=== PATIENT | female | born 1945 | race Caucasian/White ===

== ENCOUNTER → 2016-06-19 | Outpatient (CLI) | payer MEDICARE ==
[2016-06-19 08:35] LABS: ALT 32 U/L (9-52); AST 32 U/L (14-36); Cholesterol 136 mg/dL (<200); HDL Cholesterol 53 mg/dL (40-60); Triglycerides 96 mg/dL (<150)
== END | disposition home or self-care (01) ==
LOC: LABWHC1 07:56
PROVIDERS: ATTEND Internal Medicine Interventional Cardiology
DX: E78.2 Mixed hyperlipidemia (principal)
CPT/HCPCS: 36415; 80061; 84450; 84460

== ENCOUNTER 2016-11-01 14:20 | Emergency (ER) | payer MEDICARE ==
[2016-11-01 14:41] VITALS: RESP 20
[2016-11-01] MEDS ORDERED: SODIUM CHLORIDE 0.9% 1,000 ML IV STA ×2 (15:26→17:51)
[2016-11-01] MEDS ORDERED: ONDANSETRON 4 MG/2 ML VIAL IVP STA (15:27)
--- NOTE | 2016-11-01 15:27 | ED ---
General Adult HPI - General Chief complaint: Abdominal Pain Stated complaint: Abd Pain Time Seen by Provider: 11/01/16 15:18 Source: patient, family, RN notes reviewed Mode of arrival: wheelchair Limitations: no limitations - History of Present Illness Initial comments: Patient is a 71-year-old female who presents emergency room today with chief complaint of symptoms of nausea vomiting over the last 2 days. Does admit that she has some lower abdominal pain. Does admit to a strong order to her urine. States never had a urinary tract infection to her knowledge. Patient denies any other complaints or symptoms at this time. Patient denies any recent fever, chills, shortness of breath, chest pain, back pain, numbness or tingling, dysuria or hematuria, constipation or diarrhea, headaches or visual changes, or any other complaints. - Related Data Home Medications Medication Instructions Recorded Confirmed ARIPiprazole [Abilify] 5 mg PO QAM 11/01/16 11/01/16 Albuterol Nebulized [Ventolin 2.5 mg INHALATION RT-QID PRN 11/01/16 11/01/16 Nebulized] Aspirin EC [Ecotrin Low Dose] 81 mg PO HS 11/01/16 11/01/16 Cholecalciferol [Vitamin D3] 1,000 unit PO QAM 11/01/16 11/01/16 Citalopram Hydrobromide [CeleXA] 20 mg PO HS 11/01/16 11/01/16 Docusate [Colace] 100 mg PO DAILY PRN 11/01/16 11/01/16 Famotidine [Pepcid] 20 mg PO BID 11/01/16 11/01/16 Levothyroxine Sodium [Synthroid] 50 mcg PO MOTUWETHFRSA 11/01/16 11/01/16 Levothyroxine Sodium [Synthroid] 100 mcg PO RICHARDS 11/01/16 11/01/16 Metoprolol Tartrate [Lopressor] 12.5 mg PO BID 11/01/16 11/01/16 Montelukast [Singulair] 10 mg PO HS 11/01/16 11/01/16 Simvastatin [Zocor] 40 mg PO HS 11/01/16 11/01/16 Solifenacin Succinate [Vesicare] 10 mg PO QAM 11/01/16 11/01/16 amLODIPine [Norvasc] 5 mg PO QAM 11/01/16 11/01/16 clonazePAM [KlonoPIN] 0.5 mg PO HS 11/01/16 11/01/16 rOPINIRole HCL [Requip] 0.5 mg PO HS 11/01/16 11/01/16 Previous Rx's Medication Instructions Recorded Nitrofurantoin Monohyd/M-Cryst 100 mg PO Q12HR #14 cap 11/01/16 [Macrobid] Phenazopyridine [Pyridium] 100 mg PO TID 3 Days 11/01/16 Allergies Allergy/AdvReac Type Severity Reaction Status Date / Time No Known Allergies Allergy Verified 11/01/16 16:05 Review of Systems ROS Statement: Those systems with pertinent positive or pertinent negative responses have been documented in the HPI. ROS Other: All systems not noted in ROS Statement are negative. Past Medical History Past Medical History: Dementia, Hypertension History of Any Multi-Drug Resistant Organisms: None Reported Past Surgical History: Orthopedic Surgery Additional Past Surgical History / Comment(s): ankle aaa repair Past Psychological History: No Psychological Hx Reported Smoking Status: Never smoker Past Alcohol Use History: None Reported Past Drug Use History: None Reported General Exam - General Exam Comments Initial Comments: General: The patient is awake and alert, in no distress, and does not appear acutely ill. Eye: Pupils are equal, round and reactive to light, extra-ocular movements are intact. No nystagmus. There is normal conjunctiva bilaterally. No signs of icterus. Ears, nose, mouth and throat: There are moist mucous membranes and no oral lesions. Neck: The neck is supple, there is no tenderness or JVD. Cardiovascular: There is a regular rate and rhythm. No murmur, rub or gallop is appreciated. Respiratory: Lungs are clear to auscultation, respirations are non-labored, breath sounds are equal. No wheezes, stridor, rales, or rhonchi. Gastrointestinal: Soft, non-distended, non-tender abdomen without masses or organomegaly noted. There is no rebound or guarding present. No CVA tenderness. Bowel sounds are unremarkable. Musculoskeletal: Normal ROM, no tenderness. Strength 5/5. Sensation intact. Pulses equal bilaterally 2+. Neurological: A&O x 3. CN II-XII intact, There are no obvious motor or sensory deficits. Coordination appears grossly intact. Speech is normal. Skin: Skin is warm and dry and no rashes or lesions are noted. Psychiatric: Cooperative, appropriate mood & affect, normal judgment. Limitations: no limitations Course Vital Signs 11/01/16 14:34 Temperature 99.8 F H Pulse Rate 73 Respiratory 20 Rate Blood Pressure 108/52 O2 Sat by Pulse 93 L Oximetry Medical Decision Making - Medical Decision Making patient's labs been reviewed does show 12,000 white count 6 white cells in her urine she does admit to some dysuria symptoms and a fall smell. CT of the abdomen was performed and does show old compression fracture of the lumbar spine along with a aortic aneurysm. The have many comparisons stating that the aneurysm smaller than previous. Patient will be discharged home on antibiotics urine cultures pending. advisedpatient close follow-up family doctor over the next 2 days or return here to the emergency room if his symptoms increase or worsen or for any other concerns. - Lab Data Result diagrams: 11/01/16 15:57 11/01/16 15:57 Lab Results 11/01/16 11/01/16 11/01/16 Range/Units 15:57 15:57 16:48 WBC 12.0 H (3.8-10.6) k/uL RBC 4.25 (3.80-5.40) m/uL Hgb 13.1 (11.4-16.0) gm/dL Hct 39.1 (34.0-46.0) % MCV 92.0 (80.0-100.0) fL MCH 30.9 (25.0-35.0) pg MCHC 33.6 (31.0-37.0) g/dL RDW 12.9 (11.5-15.5) % Plt Count 178 (150-450) k/uL Neutrophils % 75 % Lymphocytes % 19 % Monocytes % 5 % Eosinophils % 0 % Basophils % 0 % Neutrophils # 9.0 H (1.3-7.7) k/uL Lymphocytes # 2.2 (1.0-4.8) k/uL Monocytes # 0.6 (0-1.0) k/uL Eosinophils # 0.0 (0-0.7) k/uL Basophils # 0.0 (0-0.2) k/uL Sodium 143 (137-145) mmol/L Potassium 4.4 (3.5-5.1) mmol/L Chloride 107 (98-107) mmol/L Carbon Dioxide 27 (22-30) mmol/L Anion Gap 9 mmol/L BUN 23 H (7-17) mg/dL Creatinine 1.00 (0.52-1.04) mg/dL Est GFR (MDRD) Af Amer >60 (>60 ml/min/1.73 sqM) Est GFR (MDRD) Non-Af 55 (>60 ml/min/1.73 sqM) Glucose 98 (74-99) mg/dL Calcium 9.0 (8.4-10.2) mg/dL Total Bilirubin 0.9 (0.2-1.3) mg/dL AST 31 (14-36) U/L ALT 31 (9-52) U/L Alkaline Phosphatase 57 (38-126) U/L Total Protein 6.9 (6.3-8.2) g/dL Albumin 3.6 (3.5-5.0) g/dL Amylase 41 (30-110) U/L Lipase 61 (23-300) U/L Urine Color Yellow Urine Appearance Cloudy H (Clear) Urine pH 7.0 (5.0-8.0) Ur Specific [place] 1.017 (1.001-1.035) Urine Protein Trace H (Negative) Urine Glucose (UA) Negative (Negative) Urine Ketones Negative (Negative) Urine Blood Negative (Negative) Urine Nitrite Negative (Negative) Urine Bilirubin Negative (Negative) Urine Urobilinogen 2.0 (<2.0) mg/dL Ur Leukocyte Esterase Small H (Negative) Urine RBC <1 (0-5) /hpf Urine WBC 6 H (0-5) /hpf Ur Squamous Epith Cells <1 (0-4) /hpf Urine Bacteria Few H (None) /hpf Urine Mucus Rare H (None) /hpf Disposition Clinical Impression: UTI (urinary tract infection) Disposition: HOME SELF-CARE Condition: Good Instructions: Urinary Tract Infection in Women (ED) Additional Instructions: Please use medication as discussed. Please follow-up with family doctor in the next 2 days. Please return to emergency room if the symptoms increase or worsen or for any other concerns. Prescriptions: Nitrofurantoin Monohyd/M-Cryst [Macrobid] 100 mg PO Q12HR #14 cap Phenazopyridine [Pyridium] 100 mg PO TID 3 Days Referrals: Matte,[place], MD [Primary Care Provider] - 1-2 days Time of Disposition: 19:44
[2016-11-01 16:13] LABS: Basophils % (A) 0 %; CH 30.3; Eosinophils % (A) 0 %; HCT 39.1 % (34.0-46.0); HDW 2.34; HGB 13.1 gm/dL (11.4-16.0); Luc % (Auto) 2; Lymphocytes # (A) 2.2 k/uL (1.0-4.8); Lymphocytes % (A) 19 %; MCH 30.9 pg (25.0-35.0); MCHC 33.6 g/dL (31.0-37.0); Mean Platelet Volume 7.7; Monocytes # (A) 0.6 k/uL (0-1.0); Monocytes % (A) 5 %; Neutrophils % (A) 75 %; RBC 4.25 m/uL (3.80-5.40); RDW 12.9 % (11.5-15.5); WBC (Perox) 11.44
[2016-11-01 16:19] LABS: ALT 31 U/L (9-52); AST 31 U/L (14-36); Alkaline Phosphatase 57 U/L (38-126); Amylase 41 U/L (30-110); Anion Gap 9 mmol/L; Blood Urea Nitrogen 23 mg/dL (7-17); Carbon Dioxide 27 mmol/L (22-30); Chloride 107 mmol/L (98-107); Glucose 98 mg/dL (74-99); Non-African American GFR(MDRD) 55 (>60 ml/min/1.73 sqM); Potassium 4.4 mmol/L (3.5-5.1); Sodium 143 mmol/L (137-145); Total Bilirubin 0.9 mg/dL (0.2-1.3); Total Protein 6.9 g/dL (6.3-8.2)
--- NOTE | 2016-11-01 16:20 | XR ---
EXAMINATION TYPE: XR KUB DATE OF EXAM: 11/01/2016 CLINICAL HISTORY: Abdominal pain. TECHNIQUE: 2 supine KUB images of the abdomen are obtained COMPARISON: CTA abdomen May 23, 2015. FINDINGS: Scattered gas is seen in non-distended small bowel loops. Gas and fecal material is seen in non-distended colon. Slight prominence of colonic fecal material is seen. Aortobiiliac stent graft is now present. Visualized osseous structures are intact. Surgical clips bilateral groin region are seen. There is left-sided pelvic phlebolith noted. IMPRESSION: Overall nonobstructive bowel gas pattern. Perhaps mild colonic fecal stasis.
[2016-11-01 17:30] LABS: Bacteria,Urine Few /hpf; Particle Count 156440; RBC,Urine <1 /hpf (0-5); Squamous Epithelial Cell,Urine <1 /hpf (0-4); WBC,Urine 6 /hpf (0-5)
[2016-11-01 17:36] LABS: Appearance,Urine Cloudy (Clear); Bilirubin,Urine Negative (Negative); Glucose,Urine (UA) Negative (Negative); Ketones,Urine Negative (Negative); Leukocyte Esterase,Urine Small (Negative); Mucus,Urine Rare /hpf; Nitrite,Urine Negative (Negative); Protein,Urine Trace (Negative); Specific Gravity,Urine 1.017 (1.001-1.035); UA Billing (MACRO vs. MICRO) MICRO
[2016-11-01] MEDS ORDERED: RX INFO: IV CONTRAST WAS GIVEN 1 EACH MISC MISCELLANE PRN (17:51)
--- NOTE | 2016-11-01 19:26 | CT ---
EXAMINATION TYPE: CT abdomen pelvis w con DATE OF EXAM: 11/01/2016 COMPARISON: 05/23/2015 HISTORY: Rightr lower quadrant pain CT DLP: 1845 mGycm Automated exposure control for dose reduction was used. TECHNIQUE: Helical acquisition of images was performed from the lung bases through the pelvis. CONTRAST: Performed without Oral Contrast and with IV Contrast, patient injected with 80 mL of Visipaque 320. FINDINGS: There is patchy infiltrate and atelectasis at the posterior lung bases. There is mild pleural thicken ing. There is a hiatal hernia. Heart appears enlarged. There is a 2.5 cm cyst in the superior right l obe of the liver. There are some calcifications in the dependent gallbladder fundus. Spleen appears n ormal. There is no pancreatic mass. There is no adrenal mass. Kidneys show normal contrast opacificat ion. There is no hydronephrosis. Ureters are not dilated. There is aortoiliac stent noted. There is n o retroperitoneal adenopathy. There is no ascites. Bladder distends smoothly. There is no sign of a pelvic mass. I see no intestinal wall thickening. I see no bony destructive process. There is 20% wedging of L1 vertebra that appears old. There is a 3.3 cm lower abdominal aortic aneurysm. Appendix is not seen. There is no sign of appendicitis.: IMPRESSION: OLD MILD L1 COMPRESSION FRACTURE. MILD ABDOMINAL AORTIC ANEURYSM IS SMALLER THAN OLD CT SCAN. SMALL C ALCIFIED GALLSTONES ARE UNCHANGED. NO SIGN OF ACUTE ABDOMEN AND PELVIS. CHRONIC INFILTRATES AT THE SADA NG BASES APPEARS STABLE. MODERATE-SIZED HIATAL HERNIA. CARDIOMEGALY. STABLE HEPATIC CYST.
[2016-11-01 22:14] VITALS: BP 126/60; PULSE 67; TEMP 97.8
== END 2016-11-01 21:45 | disposition home or self-care (01) ==
LOC: EC 14:20
DX: N39.0 Urinary tract infection, site not specified (principal); R11.2 Nausea with vomiting, unspecified; R10.30 Lower abdominal pain, unspecified; F03.90 Unspecified dementia, unspecified severity, without behavioral disturbance, psychotic disturbance, mood disturbance, and anxiety; I10 Essential (primary) hypertension; Z87.81 Personal history of (healed) traumatic fracture; Z79.82 Long term (current) use of aspirin; Z79.899 Other long term (current) drug therapy
CPT/HCPCS: 36415; 80053; 82150; 83690; 85025; 81001; 87086; 87077; 87186; 74000; 74177; 99284; 96374; Q9967; J2405

== ENCOUNTER → 2017-02-15 | Outpatient (CLI) | payer MEDICARE ==
[2017-02-15 08:48] LABS: ALT 31 U/L (9-52); AST 30 U/L (14-36); Alkaline Phosphatase 59 U/L (38-126); Anion Gap 7 mmol/L; Blood Urea Nitrogen 27 mg/dL (7-17); Calcium 9.1 mg/dL (8.4-10.2); Carbon Dioxide 28 mmol/L (22-30); Chloride 109 mmol/L (98-107); Cholesterol 133 mg/dL (<200); Glucose 96 mg/dL (74-99); HDL Cholesterol 55 mg/dL (40-60); Non-African American GFR(MDRD) 57 (>60 ml/min/1.73 sqM); Potassium 4.1 mmol/L (3.5-5.1); Sodium 144 mmol/L (137-145); Total Bilirubin 0.7 mg/dL (0.2-1.3)
== END | disposition home or self-care (01) ==
LOC: LABWHC1 07:45
PROVIDERS: ATTEND Internal Medicine Interventional Cardiology
DX: E78.2 Mixed hyperlipidemia (principal)
CPT/HCPCS: 36415; 80053; 80061

== ENCOUNTER → 2017-06-23 | Outpatient (CLI) | payer MEDICARE ==
[2017-06-23 08:42] LABS: ALT 20 U/L (9-52); AST 29 U/L (14-36); Cholesterol 140 mg/dL (<200); HDL Cholesterol 52 mg/dL (40-60); LDL Cholesterol,Calculated 59 mg/dL (0-99); Triglycerides 147 mg/dL (<150)
== END | disposition home or self-care (01) ==
LOC: LABWHC1 07:52
PROVIDERS: ATTEND Internal Medicine Interventional Cardiology
DX: E78.2 Mixed hyperlipidemia (principal)
CPT/HCPCS: 36415; 80061; 84450; 84460